=== PATIENT | male | born 1970 | race Caucasian/White ===

== ENCOUNTER 2018-04-14 07:27 | Emergency (ER) | payer OTHER, MEDICAID ==
[~2018-04-14] VITALS: Ht 152.4 cm; Wt 63.5 kg
--- NOTE | 2018-04-14 07:38 | NUR ---
PT AMBULATED TO ER BED 09
[2018-04-14 07:43] VITALS: BP 153/108
--- NOTE | 2018-04-14 07:55 | NUR ---
47 YO M BIB SELF W/ C/O GENERALIZED BODYACHES, MILD DRY COUGH X YESTERDAY. DENIES N/V/D, DENIES CONGESTION. RR EVEN AND UNLABORED, LUNGS BL CLEAR. ABD SOFT, NON-TENDER. BOWEL SOUNDS ACTIVE X 4. AAOX4, GCS 15. AMBULATORY W/ STEADY GAIT. A/V SHUNT LEFT ARM W/ DIALYSIS M, W, F, DIALYSIZED YESTERDAY. PT STATES "I THINK MY POTASSIUM MAY BE HIGH". ER MD NOTIFIED OF PT STATUS. PT NEEDS MET, SAFETY PRECAUTIONS IN PLACE. WILL CONTINUE TO MONITOR.
[2018-04-14] MEDS ORDERED: traMADol 50 MG TAB PO ONE (08:10)
[2018-04-14] MEDS ORDERED: hydrOXYzine HCL 25 MG TAB PO ONE (08:10)
--- NOTE | 2018-04-14 08:57 | NUR ---
PT RESTING COMFORTABLY IN [facility] AT THIS TIME W/ VSS. SAFETY PRECAUTIONS IN PLACE. WILL CONTINUE TO MONITOR.
[2018-04-14 09:43] VITALS: BP 149/99
== END 2018-04-14 09:44 | disposition home or self-care (01) ==
LOC: MED 07:27
DX: I13.11 Hypertensive heart and chronic kidney disease without heart failure, with stage 5 chronic kidney disease, or end stage renal disease (principal); N18.6 End stage renal disease; M79.7 Fibromyalgia; Z99.2 Dependence on renal dialysis
CPT/HCPCS: 99283

== ENCOUNTER 2018-07-23 15:34 | Emergency (ER) | payer SELFPAY ==
[~2018-07-23] VITALS: Ht 165.1 cm; Wt 59.9 kg
[2018-07-23 15:40] VITALS: BP 134/92
--- NOTE | 2018-07-23 15:45 | NUR ---
PT AMBULATED TO ER BED 2 AT THIS TIME.
[2018-07-23] MEDS ORDERED: METO50TE2 PO (15:56)
--- NOTE | 2018-07-23 16:00 | NUR ---
C/O ANXIETY AFTER EATING A CHOCOLATE AT. FEELING DIZZY AND ANXIOUS. DENIES CHEST PAIN HX: HTN,ESRD,DIALYSIS MWF. TAKING METOPROLOL 50 MG. PO DAILY. LA DIALYSIS ACCESS, POSITIVE BRUIT, POSITIVE THRILL . DENIES N/V/D; SKIN IS PINK/WARM/DRY; AAOX4 WITH EVEN AND STEADY GAIT; LUNGS CLEAR BL; HR EVEN AND REGULAR; PT DENIES ANY FEVER, CP, SOB, OR COUGH AT THIS TIME; PATIENT POSITIONED FOR COMFORT; HOB ELEVATED; BEDRAILS UP X1; BED DOWN. ER MD MADE AWARE OF PT STATUS.
--- NOTE | 2018-07-23 16:00 | NUR ---
GAVE PT URINE CUP
--- NOTE | 2018-07-23 16:10 | NUR ---
PER PT HE IS ANURIC
[2018-07-23] MEDS ORDERED: LORazepam 2 MG/ML VIAL IM ONE (16:55)
[2018-07-23] MEDS ORDERED: hydrOXYzine HCL 25 MG TAB PO ONE (16:55)
--- NOTE | 2018-07-23 17:13 | NUR ---
PT RESTING IN BED, FAMILY AT BEDSIDE, NO NEW NEEDS AT THIS TIME
--- NOTE | 2018-07-23 18:12 | NUR ---
pt cannot produce urine, Dr. West aware
[2018-07-23 18:29] VITALS: BP 129/78
--- NOTE | 2018-07-23 18:29 | NUR ---
Patient discharged with v/s stable. Written and verbal after care instructions given and explained. Patient alert, oriented and verbalized understanding of instructions. Ambulatory with steady gait. All questions addressed prior to discharge. ID band removed. Patient advised to follow up with PMD. Rx of VISTARIL given. Patient educated on indication of medication including possible reaction and side effects. Opportunity to ask questions provided and answered. PATIENT GIVEN INSTRUCTIONS IN GABONESE TO FAMILY MEMBER.
== END 2018-07-23 18:29 | disposition home or self-care (01) ==
LOC: MED 15:34
DX: F12.10 Cannabis abuse, uncomplicated (principal); I12.0 Hypertensive chronic kidney disease with stage 5 chronic kidney disease or end stage renal disease; N18.6 End stage renal disease; Z99.2 Dependence on renal dialysis; Z79.899 Other long term (current) drug therapy
CPT/HCPCS: 93005; 96372; 99283; J2060

== ENCOUNTER 2019-02-25 20:11 | Emergency (ER) | payer OTHER ==
[~2019-02-25] VITALS: Ht 157.5 cm; Wt 60.0 kg
[~2019-02-25 20:11] MED LIST: METO50TE2 PO
[2019-02-25 20:15] VITALS: BP 136/98
--- NOTE | 2019-02-25 20:18 | NUR ---
TO LOBBY A/W BED, AMBULATORY
--- NOTE | 2019-02-25 21:37 | NUR ---
PT AMBULATED TO BED 8
--- NOTE | 2019-02-25 21:49 | NUR ---
48 Y/O MALE PRESENTS TO ED, C/O RASH. PT STATES GOING TO CLINIC FOR RASH, GOT RX ACYCLOVIR AND NEUROTIN. PT STATES SYMPTOMS WORSENED ALONG WITH NECK STIFFNESS/PAIN. PT DENIES ANY SOB/CHEST PAIN. C/O SEVERE ITCHING. RASH LOCATED AROUND CHEST REGION AND AROUND NECK. PT STABLE. ERMD AWARE. WILL CONTINUE TO MONITOR.
[2019-02-25 22:05] VITALS: BP 141/90
--- NOTE | 2019-02-25 22:05 | NUR ---
PT DISCHARGED BY DR FORTE, PAPERWORK PROVIDED. NO RX PROVIDED. EDUCATED PT REGARDING D/C DIAGNOSIS AND INSTRUCTIONS. PT VERBALIZED UNDERSTANDING OF TEACHING. TOLD PT TO FOLLOW UP WITH PCP AND WHEN TO RETURN TO ED. PT VSS. ALL QUESTIONS ANSWERED.
== END 2019-02-25 22:05 | disposition home or self-care (01) ==
LOC: MED 20:11
DX: B02.9 Zoster without complications (principal); I10 Essential (primary) hypertension; N28.9 Disorder of kidney and ureter, unspecified
CPT/HCPCS: 99281; 99283

== ENCOUNTER 2019-02-27 11:01 | Emergency (ER) | payer SELFPAY ==
[~2019-02-27] VITALS: Ht 162.6 cm; Wt 61.7 kg
[2019-02-27 11:06] VITALS: BP 168/133
--- NOTE | 2019-02-27 11:06 | NUR ---
PT AMBULATED TO ER BED 09
--- NOTE | 2019-02-27 11:29 | NUR ---
seen in the ER for shingles, treated with acyclovir. Patient admints taking more than the ordered dose. Complaints of dizziness since yesterday. Denies any injury. Patient has clear speach, has equal facial symetry, no drift.
[2019-02-27 11:46] VITALS: BP 168/133
--- NOTE | 2019-02-27 11:47 | NUR ---
Patient discharged with v/s stable. Written and verbal after care instructions given and explained. Patient verbalized understanding. Ambulatory with steady gait. All questions addressed prior to discharge. Advised to follow up with PMD.
== END 2019-02-27 11:47 | disposition home or self-care (01) ==
LOC: MED 11:01
DX: R42 Dizziness and giddiness (principal); I10 Essential (primary) hypertension; Z87.448 Personal history of other diseases of urinary system; Z79.899 Other long term (current) drug therapy
CPT/HCPCS: 82948; 99282; 99283

== ENCOUNTER 2019-09-11 20:25 | Emergency (ER) | payer MEDICAID, OTHER ==
[~2019-09-11] VITALS: Ht 152.4 cm; Wt 60.8 kg
[2019-09-11 20:56] VITALS: BP 173/128
--- NOTE | 2019-09-11 21:06 | NUR ---
AMBULATED TO BED 12 WITH STEADY GAIT.
--- NOTE | 2019-09-11 21:14 | NUR ---
PT PLACED ON 3 LEAD ECG
--- NOTE | 2019-09-11 21:14 | NUR ---
49 Y/M PRESENTS TO ED C/O FACIAL SWELLING X 3 DAYS. PT REPORTS DENTAL PAIN. PT WAS SEEN BY HIS DENTIST EARLIER TODAY AND GIVEN AMOX AND TYLENOL. PT REPORTS 10 PAIN. AIRWAY PATENT. 02SAT 100%. PT HAS DIALYSIS SHUNT ON LT FA. LAST DIALYSIS THIS PAST FRIDAY. RR EVEN AND UNLABORED. LUNGS CLEAR. ABD SOFT. BS ACTIVE X4. SKIN WARM AND DRY TO TOUCH. DENIES DYURIA OR HEMATURIA PMHX: HTN, RENAL DISEASE. ALLX: NKA
--- NOTE | 2019-09-11 22:05 | NUR ---
ERMD BEDSIDE EVALUATING PT
[2019-09-11] MEDS ORDERED: HYDROcodone/APAP 5/325 MG 1 TAB TAB PO ONE (22:15)
[2019-09-11] MEDS ORDERED: AMOXIL/CLAVULANATE 500/125 MG 1 TAB PO STA (22:15)
--- NOTE | 2019-09-11 22:25 | NUR ---
CALLED DIAL PRINTER FOR AUGMENTIN.
[2019-09-11] MEDS ORDERED: AMOXIL/CLAVULANATE 875/125 MG 1 TAB ONE (22:29)
--- NOTE | 2019-09-11 23:10 | NUR ---
AUGMENTIN 500MG ADMINISTED, AUGMENTIN 875 NOT ADMINISTERED. ORDERED BY HOUSE SUP TO PULL OUT OF PIXES
--- NOTE | 2019-09-11 23:43 | NUR ---
Patient discharged with v/s stable. Written and verbal after care instructions given and explained. Patient alert, oriented and verbalized understanding of instructions. Ambulatory with steady gait. All questions addressed prior to discharge. ID band removed. Patient advised to follow up with PMD. Rx of AUGMENTIN, NORCO given. Patient educated on indication of medication including possible reaction and side effects. Opportunity to ask questions provided and answered.
== END 2019-09-11 23:43 | disposition home or self-care (01) ==
LOC: MED 20:25
DX: K02.9 Dental caries, unspecified (principal); K03.81 Cracked tooth; K03.89 Other specified diseases of hard tissues of teeth; I10 Essential (primary) hypertension; Z87.448 Personal history of other diseases of urinary system; Z79.899 Other long term (current) drug therapy
CPT/HCPCS: 99283